=== PATIENT | male | born 1930 | race Caucasian/White ===

== ENCOUNTER 2017-02-26 09:58 | Day surgery (SDC) | payer MEDICARE, BC ==
[2017-02-26] MEDS ORDERED: Sodium Chloride 0.9% 5 ML Syringe FLUSH PRN (10:00)
[2017-02-26] MEDS ORDERED: Sodium Chloride 0.9% 1,000 ML IV SCH (10:00)
[2017-02-26] MEDS ORDERED: fentaNYL 100 MCG/2 ML SDV ONE (10:35)
[2017-02-26] MEDS ORDERED: Propofol 200 MG/20 ML SDV ONE (10:35)
[2017-02-26] MEDS ORDERED: Midazolam 1 MG/ML 2 ML SDV ONE (10:35)
[2017-02-26] MEDS ORDERED: Propofol 200 MG/20 ML SDV IV ONE (11:35)
[2017-02-26] MEDS ORDERED: Midazolam 1 MG/ML 2 ML SDV IV ONE (11:35)
--- NOTE | 2017-02-26 11:56 | PCM.OPNOTE ---
- General Post-Op/Procedure Note Date of Surgery/Procedure: 02/26/17 Operative Procedure(s): upper GI endoscopy Pre Op Diagnosis: Persistent epigastric discomfort. Dyspepsia. Secondary Surgeon: Danyell Condition: Good Free Text/Narrative:: INFORMED CONSENT: Patient is here today for elective upper GI endoscopy. All aspects of this procedure have been discussed with the patient. All possible complications also, including possibility of perforation, infection, pain, bleeding, numbness of the throat, swallowing difficulty and unknown complications. In the event of perforation the patient may need surgical exploration to repair the defect. The patient understands fully well. Patient did not have any further questions for me at the end of my interview. The patient wishes for me to proceed. INSTRUMENT USED: Video gastroscope ANESTHESIA: [ monitored anesthesia care] ASA CLASSIFICATION: [2] PROCEDURE PERFORMED: [ upper gastrointestinal endoscopy] PHARYNX: Normal. ESOPHAGUS: Normal. Proximal: Normal. Middle: Normal. Lower: Normal. GE Junction: Normal. STOMACH: Normal. Cardia: Normal. Fundus: Normal. Lesser Curvature: Normal. Greater Curvature: Normal. Antrum: Mild inflammation is noted.. Pylorus: Normal. DUODENUM: Normal. First Part: Normal. Second Part: Normal. Third Part: Normal. RETROFLEXION: Normal. BIOPSY: None. TOLERANCE: Excellent. COMPLICATIONS: None. Mild inflammation is noted.
[2017-02-26 15:10] VITALS: BP 159/68
== END 2017-02-26 14:10 | disposition home or self-care (01) ==
LOC: KA.SDS 09:58
PROVIDERS: ATTEND Family Medicine
DX: R10.13 Epigastric pain (principal); I10 Essential (primary) hypertension; J44.9 Chronic obstructive pulmonary disease, unspecified; G47.30 Sleep apnea, unspecified; E78.2 Mixed hyperlipidemia; K21.9 Gastro-esophageal reflux disease without esophagitis; E11.9 Type 2 diabetes mellitus without complications; Z88.1 Allergy status to other antibiotic agents; Z88.2 Allergy status to sulfonamides; Z88.8 Allergy status to other drugs, medicaments and biological substances; Z79.4 Long term (current) use of insulin; Z79.899 Other long term (current) drug therapy; Z79.84 Long term (current) use of oral hypoglycemic drugs; Z79.82 Long term (current) use of aspirin; J30.2 Other seasonal allergic rhinitis
CPT/HCPCS: 43235; 82962; J2250; J2704; J7030; 00740

== ENCOUNTER 2017-07-14 07:51 | Day surgery (SDC) | payer MEDICARE, BC ==
[~2017-07-14 07:51] MED LIST: Midazolam 1 MG/ML 2 ML SDV ONE; Propofol 200 MG/20 ML SDV ONE
[2017-07-14] MEDS ORDERED: Sodium Chloride 0.9% 1,000 ML IV SCH (08:00)
[2017-07-14] MEDS ORDERED: Sodium Chloride 0.9% 5 ML Syringe FLUSH PRN (08:00)
[2017-07-14] MEDS ORDERED: EPINEPHrine 1:10,000 1 MG/10 ML Syringe ONE (08:31)
[2017-07-14] MEDS ORDERED: Propofol 200 MG/20 ML SDV ONE (08:54)
[2017-07-14] MEDS ORDERED: Propofol 200 MG/20 ML SDV IV ONE (09:36)
[2017-07-14] MEDS ORDERED: Midazolam 1 MG/ML 2 ML SDV IV ONE (09:36)
--- NOTE | 2017-07-14 10:22 | PCM.OPNOTE ---
- General Post-Op/Procedure Note Date of Surgery/Procedure: 07/14/17 Operative Procedure(s): Colonoscopy and polypectomies. Findings: Normal Colonoscopy except for 2 polyps at 50 cms and 25 cms Anesthesia Technique: Moderate Sedation Primary Surgeon: Ez Child Complications: None Condition: Good Free Text/Narrative:: Dictated.
[2017-07-14 11:43] VITALS: BP 135/71
--- NOTE | 2017-07-15 10:59 | OR ---
DATE OF SURGERY: 07/14/17 07/14/2017 SURGEON: Ez Child MD PREOPERATIVE DIAGNOSIS: Persistent constipation. Low abdominal pain. Occasional rectal bleeding. Previous history of colon polyps. Hemoccult- positive stool. POSTOPERATIVE DIAGNOSIS: Persistent constipation. Low abdominal pain. Occasional rectal bleeding. Previous history of colon polyps. OPERATION PERFORMED: Colonoscopy and polypectomy x2. INSTRUMENT: Olympus video colonoscope. ANESTHESIA: Monitored anesthesia care. Informed consent was obtained from the patient regarding this procedure. All possible complications including the possibility of perforation and the event of perforation, colostomy, etc., were thoroughly discussed. Despite these complications, the patient decided to proceed. He was taken to the OR and kept in the supine position. Satisfactory and monitored anesthesia care was administered by the certified shorthand reporter. Continuous EKG, oximetry monitoring and intermittent blood pressure and respiratory monitoring were performed throughout the procedure. The Olympus video colonoscope was introduced through the rectum and then slowly advanced to the ileocecal junction. The scope was slowly withdrawn. At 50 cm, a small polyp was identified and removed using a hot biopsy forceps. A 2nd polyp was identified at 25 cm and removed using the cold biopsy forceps. A few diverticula were identified. One small area of angiodysplasia was identified at 30 cm. The rest of the examination was normal. Retroflexion technique was employed in the rectum and no additional findings were discovered. The scope was totally withdrawn. TOLERANCE: Excellent. COMPLICATIONS: Nil. /[id number]/MODL MTDD
--- NOTE | 2017-07-15 10:59 | OR ---
DATE OF SURGERY: 07/14/2017 SURGEON: Ez Child MD ADDENDUM PREOPERATIVE DIAGNOSIS: A small nodule of the right lower eyelid. 3 mm. POSTOPERATIVE DIAGNOSIS: Destruction of the nodule. PROCEDURE: Informed consent was obtained with the patient. We then cleansed this area with ChloraPrep and used a HOTSY cautery and destroyed the small lesion of the right lower eyelid. This was approximately 3 mm. The patient tolerated the procedure very well. /[id number]/MODL MTDD
== END 2017-07-14 11:35 | disposition home or self-care (01) ==
LOC: KA.SDS 07:51
PROVIDERS: ATTEND Family Medicine
DX: D12.5 Benign neoplasm of sigmoid colon (principal); K57.30 Diverticulosis of large intestine without perforation or abscess without bleeding; K55.20 Angiodysplasia of colon without hemorrhage; H02.89 Other specified disorders of eyelid; F33.0 Major depressive disorder, recurrent, mild; E11.69 Type 2 diabetes mellitus with other specified complication; E66.9 Obesity, unspecified; G47.30 Sleep apnea, unspecified; M35.3 Polymyalgia rheumatica; M19.90 Unspecified osteoarthritis, unspecified site; J44.9 Chronic obstructive pulmonary disease, unspecified; M81.0 Age-related osteoporosis without current pathological fracture; E78.2 Mixed hyperlipidemia; K21.9 Gastro-esophageal reflux disease without esophagitis; M54.42 Lumbago with sciatica, left side; G89.29 Other chronic pain; M48.02 Spinal stenosis, cervical region; Z86.010 Personal history of colon polyps; Z85.46 Personal history of malignant neoplasm of prostate; Z79.4 Long term (current) use of insulin; Z79.899 Other long term (current) drug therapy; Z88.0 Allergy status to penicillin; Z88.1 Allergy status to other antibiotic agents; Z88.2 Allergy status to sulfonamides; Z88.5 Allergy status to narcotic agent; Z91.048 Other nonmedicinal substance allergy status; Z68.33 Body mass index [BMI] 33.0-33.9, adult
CPT/HCPCS: 00830; 36415; 45380; 45384; 67850; 82962; 85025; J2250; J2704; J7030; 88305

== ENCOUNTER 2017-08-09 08:33 | Emergency (ER) | payer MEDICARE, BC ==
[2017-08-09 08:41] VITALS: BP 161/83
[2017-08-09] MEDS ORDERED: cefTRIAXone 1 GM Vial IM ONE (08:53)
--- NOTE | 2017-08-09 09:08 | EDM.PDOC ---
ED HPI GENERAL MEDICAL PROBLEM - General Chief Complaint: Lower Extremity Injury/Pain Stated Complaint: RIGHT LOWER LEG PAIN Time Seen by Provider: 08/09/17 08:49 Source of Information: Reports: Patient History Limitations: Reports: No Limitations - History of Present Illness INITIAL COMMENTS - FREE TEXT/NARRATIVE: PT STATES HE ACCIDENTALLY STRUCK RIGHT MANUEL ON HITCH ONE WEEK AGO. GRADUALLY BECOMING RED AND SWOLLEN AND MORE PAINFUL. CURRENLY ON INSULIN. DENIES FEVER, ANY OTHER INJURY, SOB, OR CP. Onset Date: 08/02/17 Duration: Week(s):, Getting Worse Location: Reports: Lower Extremity, Right Quality: Reports: Ache Severity: Mild Improves with: Reports: None Worsens with: Reports: None Context: Reports: Trauma Associated Symptoms: Reports: No Other Symptoms - Related Data Allergies Allergy/AdvReac Type Severity Reaction Status Date / Time amoxicillin [Amoxicillin] Allergy Nausea and Verified 07/14/17 08:04 Vomiting ciprofloxacin Allergy Itching Verified 07/14/17 08:04 codeine Allergy GI Verified 07/14/17 08:04 Intolerance meperidine HCl [From Demerol] Allergy Nausea and Verified 07/14/17 08:04 Vomiting and Diarrhea Sulfa (Sulfonamide Allergy Nausea Verified 07/14/17 08:04 Antibiotics) TAPE Allergy Tears skin Uncoded 07/14/17 08:04 off, paper tape is ok Home Meds: Home Meds Ascorbate Calcium [Vitamin C] 500 mg PO DAILY 03/10/14 [History] Aspirin [Halfprin] 81 mg PO DAILY 03/10/14 [History] Cholecalciferol (Vitamin D3) [D-2000] 2,000 unit PO DAILY 03/10/14 [History] Leuprolide Acetate [Lupron Depot-Ped] 30 mg IM ATDISCHARGE 03/10/14 [History] Lisinopril 20 mg PO DAILY 03/10/14 [History] Sertraline [Zoloft] 100 mg PO DAILY 03/10/14 [History] Calcium Carb & Citrate/Vit D3 [Calcium + D3 ER Tablet] 1 each PO BID 02/25/17 [ History] Denosumab [Prolia] 60 mg SUBCUT ASDIRECTED 02/25/17 [History] Fluticasone/Salmeterol [Advair Diskus 100-50] 1 puff INH BID 02/25/17 [History] Insulin Aspart [Novolog] 1 unit SQ ASDIRECTED PRN 02/25/17 [History] Insulin Degludec/Liraglutide [Xultophy 100 Unit-3.6 mg/ml] 35 unit SQ DAILY [History] Ondansetron [Zofran ODT] 4 mg PO Q6H PRN 02/25/17 [History] Rosuvastatin [Crestor] 10 mg PO DAILY 02/25/17 [History] Cyclobenzaprine [Flexeril] 5 mg PO BID 07/11/17 [History] Lactulose 10 gm PO DAILY 07/11/17 [History] Cephalexin [Keflex] 500 mg PO TID #30 cap 08/09/17 [Rx] Past Medical History HEENT History: Reports: Allergic Rhinitis, Impaired Vision, Sinusitis Cardiovascular History: Reports: Heart Murmur, High Cholesterol, Hypertension, SOB on Exertion, Other (See Below) Other Cardiovascular History: bradycardia Respiratory History: Reports: COPD, Sleep Apnea, SOB Other Respiratory History: emphesema Gastrointestinal History: Reports: Chronic Constipation, GERD, Hiatal Hernia, Other (See Below) Other Gastrointestinal History: Vomiting with eating. anorectal polyp. Obesity Genitourinary History: Reports: Prostate Disorder Musculoskeletal History: Reports: Arthritis, Back Pain, Chronic, Osteoarthritis , Osteoporosis, Other (See Below) Other Musculoskeletal History: Chronic left shoulder pain, compression fx of L1 , facet joint syndrome, cervical stenosis Neurological History: Reports: TIA Psychiatric History: Reports: Depression Endocrine/Metabolic History: Reports: Diabetes, Type II Oncologic (Cancer) History: Reports: Malignant Melanoma, Prostate Dermatologic History: Reports: Melanoma, Other (See Below) Other Dermatologic History: Fragile thin skin. Discoloration noted to bilat arms - Infectious Disease History Infectious Disease History: Reports: Measles, Mumps - Past Surgical History HEENT Surgical History: Reports: Cataract Surgery, Laser Surgery, Tonsillectomy Other HEENT Surgeries/Procedures: svetlana cataract Cardiovascular Surgical History: Reports: None Respiratory Surgical History: Reports: None GI Surgical History: Reports: Appendectomy, Colonoscopy Musculoskeletal Surgical History: Reports: Joint Replacement Social & Family History - Tobacco Use Smoking Status *Q: Never Smoker Second Hand Smoke Exposure: No - Caffeine Use Caffeine Use: Reports: Coffee - Alcohol Use Days Per Week of Alcohol Use: 0 - Recreational Drug Use Recreational Drug Use: No Review of Systems - Review of Systems Review Of Systems: ROS reveals no pertinent complaints other than HPI. Constitutional: Reports: No Symptoms Eyes: Reports: No Symptoms Ears: Reports: No Symptoms Nose: Reports: No Symptoms Mouth/Throat: Reports: No Symptoms Respiratory: Reports: No Symptoms Cardiovascular: Reports: No Symptoms GI/Abdominal: Reports: No Symptoms Genitourinary: Reports: No Symptoms Musculoskeletal: Reports: Leg Pain (RIGHT ANTERIOR TIBIA) Skin: Reports: Erythema, Wound (RIGHT ANTERIOR TIBIA) Neurological: Reports: No Symptoms Psychiatric: Reports: No Symptoms ED EXAM, GENERAL - Physical Exam Exam: See Below Exam Limited By: No Limitations General Appearance: Alert, WD/WN, No Apparent Distress Throat/Mouth: Normal Inspection, Normal Oropharynx, No Airway Compromise Head: Atraumatic, Normocephalic Neck: Normal Inspection, Supple, Non-Tender Respiratory/Chest: No Respiratory Distress, Lungs Clear Cardiovascular: Regular Rate, Rhythm Back Exam: Normal Inspection, Full Range of Motion Neurological: Alert, Oriented, Normal Cognition Psychiatric: Normal Affect, Normal Mood Skin Exam: Warm, Dry, Normal Color, No Rash, Erythema (FROM MID TO PROX TIB ANTERIOR. NOT CIRCUMFRENTIAL OR ANY FOOT INVOLVEMENT NOTED), Wound/Incision ( ABRASION TO MID TIBIA / ANTERIOR ASPECT) Lymphatic: No Adenopathy Course - Vital Signs Last Recorded V/S: Last Vital Signs Temp 95.8 F 08/09/17 08:39 Pulse 93 08/09/17 08:39 Resp 18 08/09/17 08:39 BP 161/83 H 08/09/17 08:39 Pulse Ox 97 08/09/17 08:39 - Orders/Labs/Meds Orders: Active Orders 24 hr Category Date Time Status Tibia Fibula Rt [CR] Stat Exams 08/09/17 08:53 Ordered Meds: Medications Discontinued Medications Generic Name Dose Route Start Last Admin Trade Name Freq PRN Reason Stop Dose Admin Ceftriaxone Sodium 1 gm 08/09/17 08:53 Rocephin IM 08/09/17 08:54 ONETIME ONE - Radiology Interpretation Free Text/Narrative:: TIB FIB PLAIN FILMS SHOWS NO ACUTE PROCESS - Re-Assessments/Exams Free Text/Narrative Re-Assessment/Exam: 08/09/17 09:09 PT AFEBRILE, NONTOXIC APPEARING, VSS. ROCEPHIN GIVEN. WILL HAVE HIM F/U IN 48 HOURS FOR RECHECK Departure - Departure Time of Disposition: 09:48 Disposition: Home, Self-Care 01 Condition: Good Clinical Impression: Cellulitis of right anterior lower leg - Discharge Information Instructions: Cellulitis, Adult, [id number] Referrals: Veronica Child MD [Primary Care Provider] - Additional Instructions: FOLLOW UP AT [facility] ON FRIDAY FOR RECHECK. RETURN TO ER SOONER IF SYMPTOMS CONTINUE - My Orders Last 24 Hours: My Active Orders 08/09/17 08:53 Tibia Fibula Rt [CR] Stat - Assessment/Plan Last 24 Hours: My Active Orders 08/09/17 08:53 Tibia Fibula Rt [CR] Stat Assessment:: CELLULITIS OF RIGHT LOWER LEG Plan: F/U WITH PCP FOR RECHECK IN 48 HOURS
== END 2017-08-09 10:00 | disposition home or self-care (01) ==
LOC: KA.ED 08:33
DX: S80.811A Abrasion, right lower leg, initial encounter (principal); L03.115 Cellulitis of right lower limb; I10 Essential (primary) hypertension; E78.00 Pure hypercholesterolemia, unspecified; G47.30 Sleep apnea, unspecified; K21.9 Gastro-esophageal reflux disease without esophagitis; M19.90 Unspecified osteoarthritis, unspecified site; M81.0 Age-related osteoporosis without current pathological fracture; E11.9 Type 2 diabetes mellitus without complications; F32.9 Major depressive disorder, single episode, unspecified; Z85.820 Personal history of malignant melanoma of skin; Z85.46 Personal history of malignant neoplasm of prostate; Z90.49 Acquired absence of other specified parts of digestive tract; Z98.890 Other specified postprocedural states; Z79.4 Long term (current) use of insulin; Z79.82 Long term (current) use of aspirin; Z79.899 Other long term (current) drug therapy; Z88.1 Allergy status to other antibiotic agents; Z88.2 Allergy status to sulfonamides; Z88.5 Allergy status to narcotic agent; Z88.6 Allergy status to analgesic agent; Z91.048 Other nonmedicinal substance allergy status; W22.8XXA Striking against or struck by other objects, initial encounter
CPT/HCPCS: 73590; 99283; J0696; 96372

== ENCOUNTER 2018-05-04 07:40 | Day surgery (SDC) | payer MEDICARE, BC ==
[~2018-05-04 07:40] MED LIST changes: +Bupivacaine 0.5% 30 ML SDV ONE; -Midazolam 1 MG/ML 2 ML SDV ONE; -Propofol 200 MG/20 ML SDV ONE; +Sodium Chloride 0.9% 1,000 ML IV SCH; +Sodium Chloride 0.9% 5 ML Syringe FLUSH PRN
[2018-05-04] MEDS ORDERED: Propofol 200 MG/20 ML SDV ONE ×2 (07:47→08:12)
[2018-05-04] MEDS ORDERED: fentaNYL 100 MCG/2 ML SDV ONE (07:47)
[2018-05-04] MEDS ORDERED: Lidocaine 0.5% 50 ML SDV ONE (07:47)
[2018-05-04] MEDS ORDERED: ceFAZolin 1 GM Vial ONE (08:12)
[2018-05-04] MEDS ORDERED: 50% Dextrose in Water 50 ML Syringe IVPUSH ONE (08:29)
[2018-05-04] MEDS ORDERED: ceFAZolin 1 GM Vial IV ONE (08:45)
[2018-05-04] MEDS ORDERED: Lidocaine 0.5% 50 ML SDV INJECT ONE (08:45)
[2018-05-04] MEDS ORDERED: fentaNYL 100 MCG/2 ML SDV IV ONE (08:45)
[2018-05-04] MEDS ORDERED: Propofol 200 MG/20 ML SDV IV ONE (08:45)
--- NOTE | 2018-05-04 09:38 | PCM.OPNOTE ---
- General Post-Op/Procedure Note Date of Surgery/Procedure: 05/04/18 Operative Procedure(s): Right carpal tunnel syndrome. Findings: Compression of the median nerve at the upper canal is observed. Pre Op Diagnosis: Right carpal tunnel syndrome. Post-Op Diagnosis: Same Anesthesia Technique: Regional Block Primary Surgeon: Ez Child Complications: None Condition: Good Free Text/Narrative:: INFORMED CONSENT: Patient is here today for elective right carpal tunnel decompression. All aspects of this procedure have been discussed with the patient. All possible complications also, including possibility of , infection , pain, bleeding, persistence of symptoms and other unknown complications. Anesthetic complications were handled by anesthesia department. The patient understands fully well. Patient did not have any further questions for me at the end of my interview. The patient wishes for me to proceed. PROCEDURE: Patient was kept in the supine position and the satisfactory Luli block anesthesia was administered. The right arm was thoroughly prepped and draped in the usual fashion. The tourniquet was placed to the right upper arm and a vertical incision was made in the palm directly distal to the distal wrist crease. The skin incision was deepened through the subcutaneous tissue, the palmar aponeurosis was incised and then we came down upon the transverse carpal ligament, which was opened along the line of the skin incision. Extreme care was taken to protect the median nerve below. Careful neurolysis was performed meticulously. Approximately 2 cc of Marcaine 0.5% was instilled into the wound and skin was closed using mattress sutures with 3.0 Nylon. The tourniquet was released. A sterile pressure dressing was applied. The patient tolerated the procedure well and was transferred to the recovery room in excellent condition.
[2018-05-04] MEDS ORDERED: Morphine 4 MG/ML Syringe IVPUSH ONE ×2 (10:01→11:02)
[2018-05-04 11:47] VITALS: BP 154/64
== END 2018-05-04 12:22 | disposition home or self-care (01) ==
LOC: KA.SDS 07:40
PROVIDERS: ATTEND Family Medicine
DX: G56.01 Carpal tunnel syndrome, right upper limb (principal); E11.9 Type 2 diabetes mellitus without complications; E78.5 Hyperlipidemia, unspecified; E78.2 Mixed hyperlipidemia; J44.9 Chronic obstructive pulmonary disease, unspecified; K21.9 Gastro-esophageal reflux disease without esophagitis; M19.90 Unspecified osteoarthritis, unspecified site; Z79.4 Long term (current) use of insulin; Z79.899 Other long term (current) drug therapy; Z88.0 Allergy status to penicillin; Z88.2 Allergy status to sulfonamides; Z88.5 Allergy status to narcotic agent; Z91.048 Other nonmedicinal substance allergy status
CPT/HCPCS: 64721; 82962; J0690; J2270; J2704; J3010; J7030; 01810; J7060